=== PATIENT | male | born 1945 | race Caucasian/White ===

== ENCOUNTER 2021-11-12 09:26 | Inpatient (IN) ==
[~2021-11-12 09:26] MED LIST: Acetaminophen IV 1,000 MG/100 ML BAG IVPB ONE; Famotidine 20 MG/2 ML VIAL IVP ONE; Ringers Solution, Lactated 1,000 ML IVC ONE
[2021-11-12] MEDS ORDERED: CeFAZolin Syr 2,000MG/20 ML 2,000 MG/20 ML SYRINGE IVPB ONE (10:03)
[2021-11-12] MEDS ORDERED: *HR* FentaNYL (PF) 100 MCG/2 ML VIAL ONE ×2 (10:12→13:30)
[2021-11-12] MEDS ORDERED: *HR* Remifentanil 2 MG VIAL IVP ONE (10:12)
[2021-11-12] MEDS ORDERED: Lidocaine HCL 4 ML Topical Solution (Laryng-O-Jet Kit Sterile Pak) TP ONE (10:13)
[2021-11-12] MEDS ORDERED: Heparin 1,000 UNITS/500 mL 500 ML ONE ×2 (10:40→10:52)
[2021-11-12] MEDS ORDERED: Bupivacaine-MPF 0.25% 10 ML VIAL ONE (10:51)
[2021-11-12] MEDS ORDERED: Protamine Sulfate 50 MG/5 ML VIAL IVP ONE (10:51)
[2021-11-12] MEDS ORDERED: Nitroglycerin 0.4 MG TAB.SUBL SL PRN ×2 (10:55→17:21)
[2021-11-12] MEDS ORDERED: *HR* Metoprolol 5 MG/5 ML VIAL IVP PRN (10:55)
[2021-11-12] MEDS ORDERED: Ondansetron 4 MG/2 ML VIAL IVP PRN ×2 (10:55→17:21)
[2021-11-12] MEDS ORDERED: *HR* FentaNYL (PF) 100 MCG/2 ML VIAL IVP PRN (10:55)
[2021-11-12] MEDS ORDERED: Naloxone 0.4 MG/ML INJ IVP PRN ×2 (10:55→17:21)
[2021-11-12] MEDS ORDERED: Ipratropium/Albuterol Neb 3 ML IH PRN (10:55)
[2021-11-12] MEDS ORDERED: Vancomycin 1,250 MG/262.5 ML IV.SOLN IVPB ONE ×2 (11:00→23:59)
[2021-11-12] MEDS ORDERED: Vancomycin 1,000 MG, Sodium Chloride IRRigation 1,000 ML IR ONE (11:35)
[2021-11-12] MEDS ORDERED: Sugammadex Sodium 200 MG/2 ML VIAL IV ONE (13:16)
[2021-11-12] MEDS ORDERED: *HR* Labetalol 20 MG/4 ML SYRINGE IVP ONE (13:29)
[2021-11-12] MEDS ORDERED: *HR* Labetalol 20 MG/4 ML SYRINGE IVP PRN (17:21)
[2021-11-12] MEDS ORDERED: *HR* HYDROcodone/Acet 5/325 mg TABLET PO PRN (17:21)
[2021-11-12] MEDS ORDERED: *HR* OxyCODONE Immed Rel 5 MG TABLET PO PRN (17:21)
[2021-11-12] MEDS ORDERED: 0.9 % Sodium Chloride 1,000 ML IVC SCH (17:21)
[2021-11-12] MEDS ORDERED: Acetaminophen 325 MG TABLET PO PRN (17:21)
[2021-11-12] MEDS: *HR* Metoprolol 5 MG/5 ML VIAL IVP SCH ×2 (17:47→23:58)
[2021-11-12] MEDS ORDERED: CeFAZolin 2,000 MG/120 ML BAG IVPB SCH (19:00)
[2021-11-12] MEDS ORDERED: ceFAZolin 2,000 MG in 0.9 % Sodium Chloride 100 ML IVPB SCH (19:00)
[2021-11-12] MEDS: ceFAZolin 2,000 MG in 0.9 % Sodium Chloride 100 ML IVPB SCH (21:09)
[2021-11-13] MEDS: *HR* Metoprolol 5 MG/5 ML VIAL IVP SCH (05:22)
[2021-11-13] MEDS: ceFAZolin 2,000 MG in 0.9 % Sodium Chloride 100 ML IVPB SCH (05:56)
[2021-11-13] MEDS ORDERED: *HR* Heparin 5,000 UNIT/ML VIAL SQ SCH ×2 (06:00)
[2021-11-13 06:56] VITALS: BP 120/52; TEMP 97.5; O2SAT 93
[2021-11-13] MEDS ORDERED: amLODIPine 5 MG TABLET PO SCH (09:00)
[2021-11-13] MEDS ORDERED: Aspirin 325 MG TABLET PO SCH (09:00)
[2021-11-13 09:43] VITALS: PULSE 52
== END 2021-11-13 10:50 | disposition home or self-care (01) | DRG 39 ==
LOC: SAMDAY 09:26 → 2NNU 17:21
PROVIDERS: ADMIT Surgery; ATTEND Surgery